=== PATIENT | female | born 1955 | race Caucasian/White ===

== ENCOUNTER 2017-09-22 21:12 | Outpatient (REF) | payer BC, SELFPAY ==
[2017-09-22 21:42] LABS: Anion Gap 11.9 mmol/L (3-11); BUN 16 mg/dL (7-18); CO2 27.1 mmol/L (21.0-32.0); CREATININE 0.71 mg/dL (0.55-1.02); Calcium 9.1 mg/dL (8.5-10.1); Chloride 104 mmol/L (98-107); Glucose 96 mg/dL (70-100); Sodium 143 mmol/L (136-145)
[2017-09-22 22:40] LABS: COMMENT (LAB VIEW ONLY) 141.35 mg/dL; Microalb ug/mg Crea 2.9 ug/mg Cr
== END 2017-09-22 21:13 ==
LOC: NCHCN 21:12
PROVIDERS: PCP Internal Medicine; Visit Provider Registered Nurse
DX: I10 Essential (primary) hypertension (principal); E11.9 Type 2 diabetes mellitus without complications
CPT/HCPCS: 80048; 82043; 82570

== ENCOUNTER 2018-08-26 14:54 | Outpatient (REF) | payer BC, SELFPAY | END 2018-08-26 15:14 | LOC: NCHCN 14:54 | PROVIDERS: PCP Registered Nurse; Visit Provider Registered Nurse | DX: R82.90 Unspecified abnormal findings in urine (principal) | CPT/HCPCS: 87086 ==

== ENCOUNTER 2019-01-26 11:55 | Outpatient (REF) | payer BC, SELFPAY ==
[2019-01-26 22:36] LABS: Hemoglobin A1C 6.2 % (4.5-6.2)
[2019-01-26 22:41] LABS: Anion Gap 8.1 mmol/L (3-11); BUN 14 mg/dL (7-18); CO2 30.9 mmol/L (21.0-32.0); CREATININE 0.63 mg/dL (0.55-1.02); Calcium 9.5 mg/dL (8.5-10.1); Chloride 105 mmol/L (98-107); Glucose 83 mg/dL (74-106); Potassium 4.1 mmol/L (3.5-5.1); Sodium 144 mmol/L (136-145)
[2019-01-26 23:24] LABS: Microalb ug/mg Crea 6.2 ug/mg Cr
== END 2019-01-26 12:15 ==
LOC: NCHCN 11:55
PROVIDERS: PCP Registered Nurse; Visit Provider Registered Nurse
DX: E11.9 Type 2 diabetes mellitus without complications (principal)
CPT/HCPCS: 80048; 82043; 82570; 83036

== ENCOUNTER 2020-01-18 14:42 | Outpatient (REF) | payer BC, SELFPAY ==
[2020-01-18 22:30] LABS: Anion Gap 9.5 mmol/L (3-11); BUN 17 mg/dL (7-18); CO2 27.5 mmol/L (21.0-32.0); CREATININE 0.74 mg/dL (0.55-1.02); Calcium 9.3 mg/dL (8.5-10.1); Chloride 106 mmol/L (98-107); Glucose 124 mg/dL (74-106); Sodium 143 mmol/L (136-145)
[2020-01-18 22:40] LABS: COMMENT (LAB VIEW ONLY) 31.78 mg/dL; Microalb ug/mg Crea 6.3 ug/mg Cr
== END 2020-01-18 15:02 ==
LOC: NCHCN 14:42
PROVIDERS: PCP Registered Nurse; Visit Provider Registered Nurse
DX: I10 Essential (primary) hypertension (principal); E11.9 Type 2 diabetes mellitus without complications
CPT/HCPCS: 80048; 82043; 82570

== ENCOUNTER 2021-04-25 16:45 | Outpatient (REF) | payer MEDICARE, SELFPAY ==
[2021-04-25 14:36] LABS: Hemoglobin A1C 6.9 % (<5.7)
[2021-04-25 14:53] LABS: ALT 61 U/L (14-59); AST 39 U/L (15-37); Albumin 4.2 g/dL (3.4-5.0); Alkaline Phosphatase 74 U/L (46-116); Anion Gap 13.3 mmol/L (3-11); BUN 15 mg/dL (7-18); Bilirubin, Total 0.6 mg/dL (0.2-1.0); CO2 25.7 mmol/L (21.0-32.0); CREATININE 0.7 mg/dL (0.55-1.02); Calcium 9.4 mg/dL (8.5-10.1); Chloride 103 mmol/L (98-107); Glucose 122 mg/dL (74-106); Potassium 4.2 mmol/L (3.5-5.1); Sodium 142 mmol/L (136-145); Total Protein 7.2 g/dL (6.4-8.2)
[2021-04-25 14:58] LABS: COMMENT (LAB VIEW ONLY) 35.44 mg/dL; Microalb ug/mg Crea 6.8 ug/mg Cr
[2021-04-26 10:20] LABS: Hepatitis C Ab w Rflx HCV PCR Negative (Negative)
== END 2021-04-25 16:46 | disposition home or self-care (01) ==
LOC: NCHCN 16:45
PROVIDERS: PCP Registered Nurse; Visit Provider Registered Nurse
DX: E11.9 Type 2 diabetes mellitus without complications (principal); I10 Essential (primary) hypertension; K76.0 Fatty (change of) liver, not elsewhere classified; Z11.59 Encounter for screening for other viral diseases
CPT/HCPCS: 80053; 86803; 82043; 82570; 83036

== ENCOUNTER 2022-03-05 17:56 | Outpatient (REF) | payer MEDICARE, SELFPAY ==
[2022-03-05 21:36] LABS: ALT 30 U/L (14-59); AST 25 U/L (15-37); Alkaline Phosphatase 78 U/L (46-116); Anion Gap 5.5 mmol/L (3-11); BUN 18 mg/dL (7-18); Bilirubin, Total 0.3 mg/dL (0.2-1.0); CO2 29.5 mmol/L (21.0-32.0); Calcium 10.3 mg/dL (8.5-10.1); Chloride 104 mmol/L (98-107); Cholesterol 236 mg/dL (<200); Estimated GFR 62.13 (mL/min/1.73m2); Glucose 154 mg/dL (74-106); HDL Cholesterol 45 mg/dL (40-60); Sodium 139 mmol/L (136-145); Total Protein 7.6 g/dL (6.4-8.2); Triglyceride 449 mg/dL (<150)
[2022-03-05 21:39] LABS: COMMENT (LAB VIEW ONLY) 92.46 mg/dL; Microalb ug/mg Crea 7.6 ug/mg Cr
[2022-03-05 21:57] LABS: LDL CHOLESTEROL 135 mg/dL (<100)
[2022-03-06 14:55] LABS: Hemoglobin A1C 5.9 % (<5.7)
== END 2022-03-05 17:57 | disposition home or self-care (01) ==
LOC: NCHCN 17:56
PROVIDERS: PCP Registered Nurse; Visit Provider Registered Nurse
DX: I10 Essential (primary) hypertension (principal); E11.9 Type 2 diabetes mellitus without complications; K76.0 Fatty (change of) liver, not elsewhere classified
CPT/HCPCS: 80053; 80061; 83721; 82043; 82570; 83036

== ENCOUNTER 2022-04-11 15:23 | Outpatient (REF) | payer MEDICARE, SELFPAY ==
[2022-04-11 17:16] LABS: Calcium 10.7 mg/dL (8.5-10.1)
[2022-04-14 10:30] LABS: Parathyroid Hormone,Intact 7 pg/mL (19-88)
== END 2022-04-11 15:24 | disposition home or self-care (01) ==
LOC: NCHCN 15:23
PROVIDERS: PCP Registered Nurse; Visit Provider Registered Nurse
DX: E83.52 Hypercalcemia (principal)
CPT/HCPCS: 82310; 83970

== ENCOUNTER 2022-05-14 17:10 | Outpatient (REF) | payer MEDICARE, SELFPAY ==
[2022-05-14 21:48] LABS: ESR 4 mm/hr (0-30)
[2022-05-14 21:51] LABS: Abs Immature Grans 0.03 10^3/uL (0.0-0.06); Absolute Basophil Count 0.05 10^3/uL (0.0-0.2); Absolute Lymphocyte Count 3.14 10^3/uL (1.2-3.4); Absolute Monocyte Count 0.53 10^3/uL (0.1-0.8); Absolute Neutrophil Count 3.09 10^3/uL (1.2-6.7); Basophils % 0.7; Eosinophils % 1.4; HCT 38.8 % (36.0-46.0); HGB 12.8 g/dL (11.2-15.7); Immature Grans % 0.4; Lymphocytes % 45.2; MCH 29.4 pg (27.0-33.0); MCV 89 fL (80-95); MPV 9.6 fL (8.0-11.0); Monocytes % 7.6; Neutrophils % 44.7; Platelet Count 306 10^3/uL (130-400); RBC 4.36 10^6/uL (3.93-5.22); RDW-SD 38.7 fL; WBC 6.94 10^3/uL (4.4-10.8)
[2022-05-14 22:17] LABS: C-Reactive Protein 0.26 mg/dL (0.0-0.3); TSH (W/Ref FT4) 1.03 uIU/mL (0.36-3.74)
== END 2022-05-14 17:11 | disposition home or self-care (01) ==
LOC: NCHCN 17:10
PROVIDERS: PCP Registered Nurse; Visit Provider Registered Nurse
DX: R63.4 Abnormal weight loss (principal); Z85.43 Personal history of malignant neoplasm of ovary
CPT/HCPCS: 85652; 84443; 85025; 86140

== ENCOUNTER 2022-12-16 13:37 | Outpatient (REF) | payer MEDICARE, SELFPAY ==
[2022-12-16 22:10] LABS: COMMENT (LAB VIEW ONLY) 13.75 mg/dL
== END 2022-12-16 13:38 | disposition home or self-care (01) ==
LOC: NCHCN 13:37
PROVIDERS: PCP Registered Nurse; Visit Provider Family Medicine
DX: E11.9 Type 2 diabetes mellitus without complications (principal)
CPT/HCPCS: 82043; 82570

== ENCOUNTER 2023-12-07 21:44 | Outpatient (REF) | payer MEDICARE, SELFPAY ==
[2023-12-07 22:44] LABS: COMMENT (LAB VIEW ONLY) 17.75 mg/dL
[2023-12-07 22:52] LABS: Microalb ug/mg Crea 120.6 ug/mg Cr
== END 2023-12-07 21:45 | disposition home or self-care (01) ==
LOC: NCHCN 21:44
PROVIDERS: PCP Registered Nurse; Visit Provider Internal Medicine
DX: R39.9 Unspecified symptoms and signs involving the genitourinary system (principal); R82.89 Other abnormal findings on cytological and histological examination of urine
CPT/HCPCS: 82043; 82570; 87086

== ENCOUNTER 2023-12-29 14:24 | Outpatient (REF) | payer MEDICARE, SELFPAY ==
[2023-12-29 21:36] LABS: Anion Gap 9.1 mmol/L (3-11); BUN 15 mg/dL (7-18); CO2 28.9 mmol/L (21.0-32.0); CREATININE 0.9 mg/dL (0.55-1.02); Calcium 10.1 mg/dL (8.5-10.1); Chloride 107 mmol/L (98-107); Estimated GFR 69.64 (mL/min/1.73m2); Glucose 110 mg/dL (74-106); Potassium 4.2 mmol/L (3.5-5.1); Sodium 145 mmol/L (136-145)
== END 2023-12-29 14:25 | disposition home or self-care (01) ==
LOC: NCHCN 14:24
PROVIDERS: PCP Registered Nurse; Visit Provider Family Medicine
DX: E11.9 Type 2 diabetes mellitus without complications (principal)
CPT/HCPCS: 80048

== ENCOUNTER 2024-12-28 11:43 | Outpatient (REF) | payer MEDICARE, SELFPAY | END 2024-12-28 11:44 | disposition home or self-care (01) | LOC: NCHCN 11:43 | PROVIDERS: PCP Registered Nurse; Visit Provider Family Medicine | DX: E11.9 Type 2 diabetes mellitus without complications (principal) | CPT/HCPCS: 82043; 82570 ==